=== PATIENT | female | born 1950 | race Caucasian/White ===

== ENCOUNTER 2016-11-07 18:43 | Emergency (ER) | payer OTHER ==
[~2016-11-07] VITALS: Ht 152.4 cm; Wt 63.5 kg
[~2016-11-07 18:43] MED LIST: DILT240C63; DOXA8TAB33; GLYB5TAB3; LISI20TA11; METF500T4; OMEP20CA16; WARF4TAB; [UNRECOGNIZED DRUG - REMARK]
[2016-11-07 18:46] VITALS: Ht 152.4 cm; Wt 63.5 kg
[2016-11-07] MEDS ORDERED: ACETAMINOPHEN 500 MG TAB PO STA (20:05)
--- NOTE | 2016-11-07 20:52 | ERD ---
ER Documentation Chief Complaint Date/Time DATE: 11/07/16 TIME: 20:49 Chief Complaint left ankle pain/ swelling after trip and fall today HPI This is a 66-year-old female who presents to the emergency department today complaining of left foot and ankle pain after tripping and falling on the sidewalk today. Patient states she has pain with ambulation. States she took Naprosyn for pain. Denies any previous trauma. Denies any fevers or chills. ROS All systems reviewed and are negative except as per history of present illness. Medications Home Meds Active Scripts Acetaminophen* (Tylophen*) 500 Mg Capsule, 1 CAP PO Q6H Y for PAIN AND OR ELEVATED TEMP, #30 CAP Prov:PANKAJ RAYO PA-C 11/07/16 Reported Medications [No New Meds Per Pt] No Conflict Check 02/02/12 Glyburide* (Glyburide*) 5 Mg Tablet, DAILY 05/08/11 Diltiazem Hcl (Diltiazem Er) 240 Mg Cap.sr.24h, 1 DAILY 05/08/11 Doxazosin Mesylate* (Cardura*) 8 Mg Tablet, 1 DAILY 05/08/11 Lisinopril* (Lisinopril*) 20 Mg Tablet, 2 DAILY 05/08/11 Metformin* (Glucophage*) 500 Mg Tab, 1 DAILY 05/08/11 Warfarin Sodium* (Coumadin*) 4 Mg Tablet, DAILY 05/08/11 Omeprazole* (Omeprazole*) 20 Mg Capsule.dr, 1 DAILY 05/08/11 Allergies Allergies: Coded Allergies: No Known Allergy (Verified , 11/07/16) PMhx/Soc History of Surgery: No Anesthesia Reaction: No Hx Neurological Disorder: No Hx Respiratory Disorders: No Hx Cardiac Disorders: Yes (HTN,A-FIB) Hx Psychiatric Problems: No Hx Miscellaneous Medical Probl: No (STROKE) Hx Alcohol Use: No Hx Substance Use: No Hx Tobacco Use: No Smoking Status: Never smoker Physical Exam Vitals Vital Signs Date Time Temp Pulse Resp B/P Pulse Ox O2 Delivery O2 Flow Rate FiO2 11/07/16 18:46 97.5 87 20 181/79 100 Physical Exam Const: Pleasant, no acute distress Head: Atraumatic Eyes: Normal Conjunctiva ENT: Normal External Ears, Nose and Mouth. Neck: Full range of motion..~ No meningismus. Resp: Clear to auscultation bilaterally Cardio: Regular rate and rhythm, no murmurs Abd: Soft, non tender, non distended. Normal bowel sounds Skin: No petechiae or rashes MSK: Left foot and ankle with no obvious deformity. Effusion over the lateral malleolus. Unable to assess range of motion secondary to pain. Tenderness palpation lateral malleolus, base of the fifth metatarsal diffusely over the dorsal aspect of the foot. Pulses 2+. Distal neurovascularly intact. Neur: Awake and alert Psych: Normal Mood and Affect Results 24 hrs Current Medications Medications (Trade) Dose Ordered Sig/Bell Route PRN Reason Start Time Stop Time Status Last Admin Dose Admin Acetaminophen (Tylenol Tab) 500 mg ONCE STAT PO 11/07/16 20:05 11/07/16 20:07 DC 11/07/16 20:15 DIAGNOSTIC IMAGING REPORT Patient: JIGAR SALTER : 1950 Age: 66 Sex: F MR #: [id number] DOS: 11/07/162022 Ordering MD: PANKAJ RAYO PA-C Location: [facility] Room/Bed: PROCEDURE: XR Left Ankle CLINICAL INDICATION: Trauma, fall TECHNIQUE: Standard 3 view radiographs were submitted. COMPARISON: None FINDINGS: Osseous structures: Well mineralized and intact with no fracture or destructive process identified. There is mild calcaneal spurring at the insertion of the Achilles tendon and plantar aponeurosis. Joint spaces: Well maintained with no significant erosions or spurring evident. Soft tissues: Appear unremarkable. IMPRESSION: 1. No fracture or dislocation is evident. 2. Mild calcaneal spurring. Physician Cecilia Date Time Electronically viewed and signed by Physician Cecilia on 11/07/2016 22:06 RH/ CC: PANKAJ RAYO PA-C DIAGNOSTIC IMAGING REPORT Patient: JIGAR SALTER : 1950 Age: 66 Sex: F [id number] DOS: 11/07/16 0000 Ordering MD: PANKAJ RAYO PA-C Location: [facility] Room/Bed: PROCEDURE: XR Left Foot CLINICAL INDICATION: Trauma, fall TECHNIQUE: AP, oblique, and lateral radiographs were submitted. COMPARISON: None FINDINGS: Osseous structures: appear well mineralized and intact with no fracture or destructive process identified. There is mild calcaneal spurring at the insertion of the Achilles tendon and plantar aponeurosis. Joint spaces: are well maintained, with no significant spurring, erosion or joint effusion evident. Soft tissues: appear unremarkable. IMPRESSION: 1. No fracture or dislocation is evident. 2. Mild calcaneal spurring. Physician Cecilia Date Time Electronically viewed and signed by Physician Cecilia on 11/07/2016 22:05 RH/ CC: PANKAJ RAYO PA-C Procedures/MDM Is a 66-year-old female who presents emergency department today complaining of left foot and ankle pain after sustaining a mechanical fall earlier today. Given that there was trauma and there was swelling over the patient's lateral aspect of her ankle I did obtain images per Per the radiology report images of the left ankle and left foot show no acute fracture dislocation or destructive process. There is mild calcaneal spurring at the insertion of the Achilles tendon and plantar aponeurosis. Joint spaces are well-maintained soft tissues appear unremarkable.Low suspicion for acute fracture or dislocation. The suspicion for septic joint or gout. Patient is afebrile and otherwise well-appearing. Patient symptoms at this time is consistent with sprain versus strain. Patient was given an Lamont wrap. She was also given crutches to help ambulate. She is given a prescription for Tylenol for home she may continue taking her Naprosyn. Patient declined stronger pain medication. She was given Tylenol here and stated pain improved At this time the patient is stable for discharge and outpatient management. Patient should follow up with their PCP in the next 1-2 days. They may return to the emergency department sooner for any persistent or worsening of symptoms. Patient and daughter understood and agreed with the plan. Departure Diagnosis: Primary Impression: Ankle injury Encounter type: initial encounter Laterality: left Qualified Code: S99.912A - Ankle injury, left, initial encounter Condition: PANKAJ Hoffman PA-C Nov 07, 2016 20:52
--- NOTE | 2016-11-07 22:06 | RADRPT ---
PROCEDURE: XR Left Foot CLINICAL INDICATION: Trauma, fall TECHNIQUE: AP, oblique, and lateral radiographs were submitted. COMPARISON: None FINDINGS: Osseous structures: appear well mineralized and intact with no fracture or destructive process iden tified. There is mild calcaneal spurring at the insertion of the Achilles tendon and plantar aponeur osis. Joint spaces: are well maintained, with no significant spurring, erosion or joint effusion evident. Soft tissues: appear unremarkable. IMPRESSION: 1. No fracture or dislocation is evident. 2. Mild calcaneal spurring. Physician Cecilia Date Time Electronically viewed and signed by Physician Cecilia on 11/07/2016 22:05 /
--- NOTE | 2016-11-07 22:07 | RADRPT ---
PROCEDURE: XR Left Ankle CLINICAL INDICATION: Trauma, fall TECHNIQUE: Standard 3 view radiographs were submitted. COMPARISON: None FINDINGS: Osseous structures: Well mineralized and intact with no fracture or destructive process identified. There is mild calcaneal spurring at the insertion of the Achilles tendon and plantar aponeurosis. Joint spaces: Well maintained with no significant erosions or spurring evident. Soft tissues: Appear unremarkable. IMPRESSION: 1. No fracture or dislocation is evident. 2. Mild calcaneal spurring. Physician Cecilia Date Time Electronically viewed and signed by Ike Conner Physician on 11/07/2016 22:06 /
[2016-11-07] MEDS ORDERED: ACET500C5 PO (22:13)
[2016-11-07 22:34] VITALS: BP 175/100; PULSE 88; RESP 18; TEMP 98.4
== END 2016-11-07 22:34 | disposition home or self-care (01) ==
LOC: FTE 18:43
DX: S99.912A Unspecified injury of left ankle, initial encounter (principal); I10 Essential (primary) hypertension; E11.9 Type 2 diabetes mellitus without complications; W01.0XXA Fall on same level from slipping, tripping and stumbling without subsequent striking against object, initial encounter; Y92.480 Sidewalk as the place of occurrence of the external cause; Z79.01 Long term (current) use of anticoagulants; Z79.84 Long term (current) use of oral hypoglycemic drugs
CPT/HCPCS: 73610; 73630; Z7502; Z7610